=== PATIENT | male | born 1975 | race American Indian/Alaskan Native ===

== ENCOUNTER 2021-12-29 18:56 | Emergency (ER) | payer SELFPAY ==
[2021-12-29] MEDS ORDERED: SODIUM CHLORIDE 0.9% 1000 ML 1,000 ML IV ONE ×2 (21:30→22:09)
--- NOTE | 2021-12-29 21:35 | Emergency Department Report ---
HPI - General Chief Complaint: Weakness Time Seen by Provider: 12/29/21 21:22 - HPI HPI: Room 17 Patient is a 46-year-old male present with chief complaint weakness. Patient states for the past week he is felt very weak and dizzy. Patient states he f eels faint at times and has had a dry mouth. Patient admits to polyuria. Patient also states has had a cough just been occasionally productive of clear sputum. Patient denies fever but admits to cold chills. Patient states for a week he has had diarrhea approximately 2 episodes a day. Patient denies any recent antibiotic use. Patient states that he has been vaccinated against COVID receiving 1 or 2 doses. ED Past Medical Hx - Past Medical History Previous Medical History?: Yes Hx Hypertension: Yes Additional medical history: gastric ulcers - Surgical History Past Surgical History?: No - Family History Family history: no significant - Social History Smoking Status: Current Every Day Smoker (1 pack/day) Substance Use Type: Alcohol (Sometimes but none x1 month), Marijuana - Medications Home Medications: Home Medications Medication Instructions Recorded Confirmed Last Taken Type Diphenoxylate/Atropine [Lomotil] 2 tab PO QID PRN #20 12/30/21 Unknown Rx ED Review of Systems ROS: Stated complaint: WEAKNESS/HEADACHE Other details as noted in HPI Constitutional: chills. denies: fever Eyes: denies: eye pain ENT: denies: throat pain Respiratory: cough Cardiovascular: denies: chest pain Endocrine: increased thirst, increased urine Gastrointestinal: diarrhea. denies: nausea, vomiting Genitourinary: denies: dysuria Musculoskeletal: denies: back pain Neurological: denies: headache Physical Exam - Physical Exam Vital Signs: Vital Signs 12/29/21 19:07 Temperature 99.1 F Pulse Rate 76 Respiratory 18 Rate Blood Pressure 131/82 O2 Sat by Pulse 96 Oximetry Physical Exam: GENERAL: The patient is well-developed well-nourished male lying on stretcher not appearing to be in acute distress. [] HEENT: Normocephalic. Atraumatic. Extraocular motions are intact. Patient has moist mucous membranes. No nystagmus noted NECK: Supple. Trachea midline CHEST/LUNGS: Clear to auscultation. There is no respiratory distress noted. HEART/CARDIOVASCULAR: Regular. There is no tachycardia. There is no gallop rub or murmur. ABDOMEN: Abdomen is soft, nontender. Patient has normal bowel sounds. There is no abdominal distention. SKIN: There is no rash. There is no edema. There is no diaphoresis. NEURO: The patient is awake, alert, and oriented. The patient is cooperative. The patient has no focal neurologic deficits. The patient has normal speech. Cranial nerves II through XII grossly intact. GCS 15 MUSCULOSKELETAL:There is no evidence of acute injury. ED Course Vital Signs 12/29/21 19:07 Temperature 99.1 F Pulse Rate 76 Respiratory 18 Rate Blood Pressure 131/82 O2 Sat by Pulse 96 Oximetry ED Medical Decision Making - Lab Data Result diagrams: 12/29/21 21:39 12/29/21 21:39 Laboratory Tests 12/29/21 12/29/21 12/29/21 00:14 21:39 21:39 WBC 2.7 L RBC 4.08 Hgb 11.3 L Hct 34.0 L MCV 83 L MCH 28 MCHC 33 RDW 16.7 H Plt Count 171 Lymph % (Auto) 25.8 [place] % (Auto) 13.8 H Eos % (Auto) 0.0 Baso % (Auto) 0.6 Lymph # (Auto) 0.7 L [place] # (Auto) 0.4 Eos # (Auto) 0.0 Baso # (Auto) 0.0 Seg Neutrophils % 59.8 Seg Neutrophils # 1.6 L VBG pH Sodium 134 L Potassium 4.2 Chloride 99.2 Carbon Dioxide 26 Anion Gap 13 BUN 9 Creatinine 0.9 Estimated GFR > 60 BUN/Creatinine Ratio 9 Glucose 98 Calcium 8.8 Total Bilirubin 0.40 AST 26 ALT 17 Alkaline Phosphatase 48 Troponin T Total Protein 6.6 Albumin 3.6 L Albumin/Globulin Ratio 1.1 Lipase TSH Free T4 Urine Color Yellow Urine Turbidity Clear Urine pH 6.0 Ur Specific [place] 1.030 Urine Protein 100 mg/dl Urine Glucose (UA) Negative Urine Ketones Negative Urine Blood 2+ Urine Nitrite Negative Ur Reducing Substances Not Reportable Urine Bilirubin Negative Urine Ictotest Not Reportable Urine Urobilinogen 0.2 Ur Leukocyte Esterase 3+ Urine WBC (Auto) 2.0 Urine RBC (Auto) 1.0 U Epithel Cells (Auto) 8.0 Urine Mucus 2+ 12/29/21 12/29/21 12/29/21 21:39 21:39 21:39 WBC RBC Hgb Hct MCV MCH MCHC RDW Plt Count Lymph % (Auto) [place] % (Auto) Eos % (Auto) Baso % (Auto) Lymph # (Auto) [place] # (Auto) Eos # (Auto) Baso # (Auto) Seg Neutrophils % Seg Neutrophils # VBG pH 7.380 Sodium Potassium Chloride Carbon Dioxide Anion Gap BUN Creatinine Estimated GFR BUN/Creatinine Ratio Glucose Calcium Total Bilirubin AST ALT Alkaline Phosphatase Troponin T < 0.010 Total Protein Albumin Albumin/Globulin Ratio Lipase 16 TSH 0.650 Free T4 1.26 Urine Color Urine Turbidity Urine pH Ur Specific [place] Urine Protein Urine Glucose (UA) Urine Ketones Urine Blood Urine Nitrite Ur Reducing Substances Urine Bilirubin Urine Ictotest Urine Urobilinogen Ur Leukocyte Esterase Urine WBC (Auto) Urine RBC (Auto) U Epithel Cells (Auto) Urine Mucus - Differential Diagnosis Dehydration, enteritis, hyperglycemia, new onset diabetes, hypothyroidism Critical care attestation.: If time is entered above; I have spent that time in minutes in the direct care of this critically ill patient, excluding procedure time. ED Disposition Clinical Impression: Diarrhea, Orthostasis Disposition: 01 HOME / SELF CARE / HOMELESS Is pt being admited?: No Does the pt Need Aspirin: No Condition: Stable Instructions: Diarrhea, Adult Additional Instructions: Return to the emergency department should you develop worsening symptoms, inability to tolerate food or liquids, high fever or any other concerns Prescriptions: Diphenoxylate/Atropine [Lomotil] 2 tab PO QID PRN #20 PRN Reason: Diarrhea Referrals: SAMARA BOYD MD [Staff Physician] - 3-5 Days [facility] [Provider Group] - 3-5 Days Time of Disposition: 03:45
[2021-12-29 22:19] LABS: Basophils % (Auto) 0.6 % (0.0-1.8); Hemoglobin 11.3 gm/dl (11.8-15.2); Lymphocytes # (Auto) 0.7 K/mm3 (1.2-5.4); Lymphocytes % (Auto) 25.8 % (13.4-35.0); Mean Corpuscular HGB Conc 33 % (32-34); Mean Corpuscular Volume 83 fl (84-94); Monocytes # (Auto) 0.4 K/mm3 (0.0-0.8); Monocytes % (Auto) 13.8 % (0.0-7.3); Platelet Count 171 K/mm3 (140-440); Red Blood Count 4.08 M/mm3 (3.65-5.03); Red Cell Distribution Width 16.7 % (13.2-15.2)
[2021-12-29 22:26] LABS: BUN/Creatinine Ratio 9
[2021-12-29 22:27] LABS: Alanine Aminotransferase 17 units/L (7-56); Albumin 3.6 g/dL (3.9-5); Blood Urea Nitrogen 9 mg/dL (9-20); Calcium 8.8 mg/dL (8.4-10.2); Hemolysis Index 12
[2021-12-29 22:41] LABS: Free T4 (Free Thyroxine) 1.26 ng/dL (0.76-1.46)
[2021-12-30 01:36] LABS: Mucus,Urine 2+ /HPF
[2021-12-30 03:36] LABS: Bilirubin,Urine Negative (Negative); Blood,Urine 2+ (Negative); Color,Urine Yellow (Yellow); Urobilinogen,Urine 0.2 mg/dL (<2.0)
[2021-12-30 05:03] VITALS: BP 136/93
== END 2021-12-30 06:19 | disposition home or self-care (01) ==
LOC: ED 18:56
DX: R19.7 Diarrhea, unspecified (principal); J18.2 Hypostatic pneumonia, unspecified organism; I10 Essential (primary) hypertension; F17.200 Nicotine dependence, unspecified, uncomplicated
CPT/HCPCS: 36415; 80053; 81001; 82805; 83690; 84439; 84443; 84484; 85025; 96360; 99284; J7030